=== PATIENT | male | born 1975 | race Caucasian/White ===

== ENCOUNTER 2021-02-20 09:07 | Emergency (ER) | payer OTHER ==
[2021-02-20 09:13] VITALS: TEMP 98.2; BMI 25.8
[2021-02-20] MEDS ORDERED: KETOROLAC TROMETHAMINE 60 MG/2 ML VIAL IM ONE (09:44)
[2021-02-20] MEDS ORDERED: LIDOCAINE 5% TOPICAL PATCH TP ONE (09:44)
[2021-02-20] MEDS ORDERED: METHOCARBAMOL 500 MG TABLET PO ONE (09:44)
[2021-02-20] MEDS ORDERED: morphine CARPU-JECT 2 MG/1 ML DISP.SYRIN IM ONE (11:56)
[2021-02-20] MEDS ORDERED: MORPHINE SULFATE 2 MG/ML VIAL ONE (11:59)
[2021-02-20 12:18] VITALS: BP 151/87; PULSE 66
[2021-02-20] MEDS ORDERED: LIDOCAINE PATCH REMOVAL MC SCH (22:00)
== END 2021-02-20 12:30 | disposition home or self-care (01) ==
LOC: JER 09:07
PROC: 3E0233Z Introduction of Anti-inflammatory into Muscle, Percutaneous Approach (ICD-10-PCS; principal; 2021-02-20)
PROC: 3E023NZ Introduction of Analgesics, Hypnotics, Sedatives into Muscle, Percutaneous Approach (ICD-10-PCS; 2021-02-20)
DX: M54.41 Lumbago with sciatica, right side (principal)
CPT/HCPCS: 72100-TC-FY; 99284-25

== ENCOUNTER 2021-03-14 04:07 | Day surgery (SDC) | payer OTHER ==
[2021-03-12 12:31] VITALS: BMI 25.8
[2021-03-14] MEDS ORDERED: BUPIVACAINE HCL/PF 0.25% (2.5MG/ML) 10 ML VIAL ONE (07:03)
[2021-03-14] MEDS ORDERED: methylPREDNISolone ACET (DEPO) 80 MG/1 ML VIAL ONE (07:03)
[2021-03-14] MEDS ORDERED: LIDOCAINE HCL 1%, 10 MG/ML (20ML VIAL) ONE (07:04)
[2021-03-14] MEDS ORDERED: MIDAZOLAM HCL 2 MG/2 ML SINGLE DOSE VIAL ONE (07:16)
[2021-03-14] MEDS ORDERED: PROPOFOL 20 ML ONE (07:16)
[2021-03-14] MEDS ORDERED: LIDOCAINE HCL 1%, 10 MG/ML (50 mL VIAL) INF ONE ×2 (07:48→07:49)
[2021-03-14] MEDS ORDERED: BUPIVACAINE HCL/PF 0.25% (2.5MG/ML) 10 ML VIAL IJ ONE ×2 (07:48→07:52)
[2021-03-14] MEDS ORDERED: methylPREDNISolone ACET (DEPO) 80 MG/1 ML VIAL IJ ONE ×2 (07:49→07:52)
[2021-03-14 11:30] VITALS: TEMP 97.1
[2021-03-14 11:34] VITALS: BP 125/87; PULSE 84
== END 2021-03-14 10:10 | disposition home or self-care (01) ==
LOC: JASU-SURG 04:07
PROVIDERS: ATTEND Neurological Surgery
PROC: 3E0R33Z Introduction of Anti-inflammatory into Spinal Canal, Percutaneous Approach (ICD-10-PCS; 2021-03-14)
PROC: 3E0R3BZ Introduction of Anesthetic Agent into Spinal Canal, Percutaneous Approach (ICD-10-PCS; principal; 2021-03-14 07:30)
DX: M51.17 Intervertebral disc disorders with radiculopathy, lumbosacral region (principal)
CPT/HCPCS: 76000-TC-FY

== ENCOUNTER 2021-04-11 04:10 | Day surgery (SDC) | payer OTHER ==
[2021-04-06 09:58] VITALS: BMI 25.8
[2021-04-11] MEDS ORDERED: PROPOFOL 20 ML ONE (08:16)
[2021-04-11] MEDS ORDERED: LIDOCAINE HCL/PF 2% SDV 5ML VIAL ONE (08:16)
[2021-04-11] MEDS ORDERED: BUPIVACAINE HCL/PF 0.25% (2.5MG/ML) 10 ML VIAL IJ ONE (08:21)
[2021-04-11] MEDS ORDERED: methylPREDNISolone ACET (DEPO) 80 MG/1 ML VIAL IM ONE (08:21)
[2021-04-11] MEDS ORDERED: LIDOCAINE 1% P/F 10 MG/ML VIAL INF ONE (08:21)
[2021-04-11 09:23] VITALS: BP 140/96; PULSE 62; TEMP 97.3
== END 2021-04-11 10:25 | disposition home or self-care (01) ==
LOC: JASU-SURG 04:10
PROVIDERS: ATTEND Neurological Surgery
PROC: 3E0R33Z Introduction of Anti-inflammatory into Spinal Canal, Percutaneous Approach (ICD-10-PCS; 2021-04-11)
PROC: 3E0R3BZ Introduction of Anesthetic Agent into Spinal Canal, Percutaneous Approach (ICD-10-PCS; principal; 2021-04-11 08:00)
DX: M51.17 Intervertebral disc disorders with radiculopathy, lumbosacral region (principal); M54.5 Low back pain
CPT/HCPCS: 76000-TC-FY

== ENCOUNTER 2024-05-28 10:12 | Emergency (ER) | payer BC, OTHER ==
[2024-05-28 10:30] VITALS: BP 113/73; PULSE 64; RESP 18; TEMP 97.8; BMI 21.0
[2024-05-28] MEDS ORDERED: CYCLOBENZAPRINE HCL 5 MG TABLET ONE (11:01)
[2024-05-28] MEDS ORDERED: KETOROLAC TROMETHAMINE 30 MG/1 ML VIAL ONE (11:01)
[2024-05-28] MEDS ORDERED: LIDOCAINE 5% TOPICAL PATCH ONE (11:03)
[2024-05-28] MEDS: LIDOCAINE 5% TOPICAL PATCH TP ONE (11:11)
[2024-05-28] MEDS: KETOROLAC TROMETHAMINE 30 MG/1 ML VIAL IM ONE (11:12)
[2024-05-28] MEDS ORDERED: LIDOCAINE PATCH REMOVAL MC ONE (22:00)
[2024-05-29] MEDS ORDERED: CYCLOBENZAPRINE HCL 5 MG TABLET PO ONE (10:56)
== END 2024-05-28 12:00 | disposition home or self-care (01) ==
LOC: JERFT 10:12 → JER 10:12 → JERFT 12:00
PROC: 3E0233Z Introduction of Anti-inflammatory into Muscle, Percutaneous Approach (ICD-10-PCS; principal; 2024-05-28)
DX: M54.50 Low back pain, unspecified (principal); M62.830 Muscle spasm of back
CPT/HCPCS: 99284-25

== ENCOUNTER 2025-04-13 17:49 | Emergency (ER) | payer BC, OTHER ==
[2025-04-13 17:54] VITALS: BP 136/76; PULSE 91; RESP 18; TEMP 98.2; BMI 24.6
[2025-04-13] MEDS ORDERED: IBUPROFEN 600 MG TABLET (FP) PO ONE ×2 (18:30→18:31)
== END 2025-04-13 18:40 | disposition home or self-care (01) ==
LOC: JER 17:49 → JERFT 17:49
DX: H60.92 Unspecified otitis externa, left ear (principal); H92.02 Otalgia, left ear
CPT/HCPCS: 99283-25